=== PATIENT | male | born 1975 | race Hispanic/Latino ===

== ENCOUNTER 2023-07-24 08:12 | Day surgery (SDC) | payer BC ==
[2023-07-21 16:19] LABS: Absolute Eosinophils 0.2 K/uL (0-0.5); Absolute Lymphocytes (CBC) 2.7 K/uL (0.7-4.9); Absolute Monocytes 0.6 K/uL (0.1-1.3); Absolute Neutrophil 2.8 K/uL (1.8-8.0); Basophils % 0.4 % (0-1.3); Eosinophils % 3.1 % (0-4.4); Hematocrit 47.7 % (39.6-49.0); Hemoglobin 16.4 g/dL (13.6-17.9); Lymphocytes % 42.3 % (15.3-44.8); MCH 32.5 pg (27.0-35.0); MCHC 34.3 g/dL (32.0-36.0); MCV 94.7 fL (80-100); MPV 7.4 fL (7.6-11.3); Monocytes % 9.5 % (3.3-12.3); Neutrophils % 44.7 % (41.7-73.7); Platelets 295 thou/uL (152-406); RBC Red Blood Cell Count 5.04 M/uL (4.33-5.43); Red Cell Distribution Width 13.7 % (12.1-15.2)
[2023-07-21 16:45] LABS: Anion Gap 6.1 mEq/L (5.0-15.0); Potassium 4.1 mEq/L (3.5-5.1)
--- NOTE | 2023-07-21 22:14 | RAD REPORT ---
EXAM DESCRIPTION: RAD - Chest Pa And Lat (2 Views) - 07/21/2023 4:18 pm CLINICAL HISTORY: pre op lap umbilical hernia repair. Hypertension COMPARISON: Chest Pa And Lat (2 Views) dated 10/11/2019 TECHNIQUE: PA and lateral views of the chest were obtained. FINDINGS: The lungs are clear. Heart size is normal and central vasculature is within normal limits. No pleural effusion or pneumothorax seen. No acute bony finding noted. IMPRESSION: No acute cardiopulmonary process.
[2023-07-24] MEDS ORDERED: propofoL 200 MG/20 ML VIAL IV ONE (08:17)
[2023-07-24] MEDS ORDERED: KETOROLAC 30 MG/ML INJ ONE (08:17)
[2023-07-24] MEDS ORDERED: FENTANYL CITR 100 MCG/2 ML ONE (08:17)
[2023-07-24] MEDS ORDERED: ROCURONIUM 50 MG/5 ML VIAL IV ONE (08:17)
[2023-07-24] MEDS ORDERED: dexAMETHasone 10 MG/ML VIAL ONE (08:17)
[2023-07-24] MEDS ORDERED: ONDANSETRON 4 MG/2 ML VIAL ONE (08:17)
[2023-07-24] MEDS ORDERED: MIDAZOLAM HCL 2 MG/2 ML INJ ONE (08:17)
[2023-07-24] MEDS ORDERED: LIDOCAINE 2% MPF 5 ML VIAL ONE (08:18)
[2023-07-24] MEDS: Ringers Lactate 1,000 ML IV ONE (08:40)
[2023-07-24] MEDS: CEFAZOLIN SODIUM 1 GM/VIAL ONE (09:00)
[2023-07-24] MEDS ORDERED: SUGAMMADEX SODIUM 200 MG/2 ML VIAL IV ONE (10:09)
[2023-07-24] MEDS ORDERED: Mastisol Adhesive Liq ONE ×2 (10:11)
--- NOTE | 2023-07-24 10:18 | P.BOP ---
Preoperative diagnosis: tender incarcerated umbilical hernia Postoperative diagnosis: same Primary procedure: Laparoscopic repair of tender incarcerated umbilical hernia with mesh Skin Lifter Bacon: Bertha Angela (Denise) Estimated blood loss: <10cc Specimen: sac and content Findings: incarcerated omentum Anesthesia: General Complications: None Drain(s): Other (ventralex medium) Implants: ventralex medium Transferred to: Recovery Room Condition: Good
[2023-07-24] MEDS: CODEINE 30MG/APAP 300MG TAB ONE (11:42)
[2023-07-24 12:36] VITALS: BP 124/82; TEMP 97.3; O2SAT 97
--- NOTE | 2023-07-24 14:13 | EKG ---
Test Date: 2023-07-21 Test Time: 16:10:39 Mud Analysis Supervisor: LUCINDA MEASUREMENT RESULTS: Intervals: Rate: 62 PA: 164 QRSD: 106 QT: 386 QTc: 391 [place]: P: 62 PA: 164 QRS: 116 T: 57 INTERPRETIVE STATEMENTS: Normal sinus rhythm Right axis deviation Abnormal ECG No previous ECG available for comparison Electronically Signed On 07-24-23 14:06:50 CDT by Rehan Kenyon
== END 2023-07-24 12:10 | disposition home or self-care (01) ==
LOC: OR 08:12
PROVIDERS: ATTEND Surgery
PROC: 0WUF4JZ Supplement Abdominal Wall with Synthetic Substitute, Percutaneous Endoscopic Approach (ICD-10-PCS; principal; 2023-07-24 10:15)
DX: K42.0 Umbilical hernia with obstruction, without gangrene (principal)
CPT/HCPCS: 93005; 85025; 80048; 36415; 88302; 71046; 49594; J2704; J2001; J2250; J3010; J1100; J2405; J7120; J0690

== ENCOUNTER 2023-08-23 07:02 | Day surgery (SDC) | payer BC ==
[2023-08-21 11:19] LABS: Absolute Lymphocytes (CBC) 2.7 K/uL (0.7-4.9); Absolute Neutrophil 3.3 K/uL (1.8-8.0); Basophils % 0.5 % (0-1.3); Eosinophils % 3.2 % (0-4.4); Hematocrit 47.5 % (39.6-49.0); Hemoglobin 16.5 g/dL (13.6-17.9); MCHC 34.7 g/dL (32.0-36.0); MCV 92.3 fL (80-100); MPV 7.6 fL (7.6-11.3); Monocytes % 7.1 % (3.3-12.3); Neutrophils % 49.2 % (41.7-73.7); Nucleated Red Blood Cells % 0.1 % (0-0); Platelets 368 thou/uL (152-406); RBC Red Blood Cell Count 5.15 M/uL (4.33-5.43); Red Cell Distribution Width 13.3 % (12.1-15.2)
[2023-08-21 11:20] LABS: Absolute Eosinophils 0.2 K/uL (0-0.5); Absolute Monocytes 0.5 K/uL (0.1-1.3)
[2023-08-23] MEDS ORDERED: SUCCINYLCHOLINE 20 MG/ML (10 ML) IV ONE (07:12)
[2023-08-23] MEDS ORDERED: SUGAMMADEX SODIUM 200 MG/2 ML VIAL IV ONE (07:12)
[2023-08-23] MEDS: Ringers Lactate 1,000 ML IV ONE (07:25)
[2023-08-23] MEDS ORDERED: LIDOCAINE 1% MPF 5 ML VIAL ONE (07:42)
[2023-08-23] MEDS ORDERED: ONDANSETRON 4 MG/2 ML VIAL ONE (07:42)
[2023-08-23] MEDS ORDERED: KETOROLAC 30 MG/ML INJ ONE (07:42)
[2023-08-23] MEDS ORDERED: propofoL 200 MG/20 ML VIAL IV ONE (07:42)
[2023-08-23] MEDS ORDERED: FENTANYL CITR 100 MCG/2 ML ONE (07:42)
[2023-08-23] MEDS ORDERED: MIDAZOLAM HCL 2 MG/2 ML INJ ONE (07:43)
[2023-08-23] MEDS: CEFAZOLIN SODIUM 1 GM/VIAL ONE (08:20)
[2023-08-23] MEDS: BUPIVACAINE 0.5% PF 10 ML VIAL ONE (08:28)
[2023-08-23] MEDS ORDERED: GLYCOPYRROLATE 0.2 MG/ML SYR ONE (08:30)
--- NOTE | 2023-08-23 09:09 | P.BOP ---
Preoperative diagnosis: tender back subQ masses Postoperative diagnosis: same Primary procedure: Excisional biopsy of tender back subQ mass Secondary procedure: 1. R upper back 2x2cm, 2. Left back 2x2cm , 3. Midback 5x5cm Estimated blood loss: <10cc Specimen: mass x 3 Findings: see dicta Anesthesia: General Complications: None Transferred to: Recovery Room Condition: Good
[2023-08-23] MEDS: MEPERIDINE HCL 25 MG/ML SYR ONE (09:20)
[2023-08-23 09:58] VITALS: O2SAT 98
[2023-08-23] MEDS: CODEINE 30MG/APAP 300MG TAB ONE (10:26)
[2023-08-23 10:56] VITALS: BP 129/82; TEMP 97.2
--- NOTE | 2023-08-29 14:56 | OP ---
Surgeon: Donald Diaz MD Preoperative Diagnosis: Tender back subcutaneous mass. Postoperative Diagnosis: Tender back subcutaneous mass. Procedures: Excisional biopsy of tender back subcutaneous mass. 1.Right upper back 2 x 2 cm. 2.Left back 2 x 2 cm. 3.Mid back 5 x 5 cm. Estimated Blood Loss: Less than 10 cc. Specimen: Mass x3. Finding: Subcutaneous masses. Anesthesia: General plus local. Indications: This is the case of a 48-year-old patient who came to us with 3 tender masses. The mireille efits, alternatives, and risks of excision fully explained, which include, but not limited to, infect ion, bleeding, damage to adjacent structures, anesthesia complication, recurrence, AK, and even . He also understands this may not relieve any symptoms. He might need more than one surgical inter vention. He understood, signed a consent. Procedure In Detail: The areas of concern were marked by me and the patient in the holding room. [place] elisabeth brought to the operating room, placed in supine position. Anesthesia was done without complica tion. The patient was placed in lateral decubitus position with proper protection. Back area was pr epped and draped in sterile fashion. We marked three areas, three of them using the same technique, different incisions, we did the right upper back 2 x 2 cm, left back 2 x 2 cm, and mid back 5 x 5 cm, all using the same technique, which consisted of wedge incision. The skin incision was carried down to subcutaneous tissue, removed the mass with the help of blunt dissection. These masses goes all t he way down to fascia of the muscle, but none of them penetrate the muscle. The mass was excised. A mel was irrigated. Irrigation was done. Then, we proceeded to close this with a combination of digital forensic examiner krissy. Each mass was done individually and closed individually using the same technique. Patient harry rated each procedure well. Sponge counts and instrument counts were correct. Patient was sent to [facility] in stable condition. AJIT/MG Voice ID: [id number] Report ID: [id number]
--- NOTE | 2023-08-29 14:56 | DS ---
Date of Discharge: 08/23/2023 Diagnosis: Tender back subcutaneous mass. Procedure: Excisional biopsy of tender back subcutaneous masses on the right upper back and left michelle k and mid back. Condition: Stable. Disposition: Home. Activity: As tolerated. No heavy lifting. Plan: Follow up in my office in 1 week. Call for appointment at [phone]. Keep area dry for 48 pat[address] rs. Follow up in my office in 1 week. AJIT/MG Voice ID: [id number] Report ID: [id number]
== END 2023-08-23 10:47 | disposition home or self-care (01) ==
LOC: OR 07:02
PROVIDERS: ATTEND Surgery
PROC: 0JB70ZZ Excision of Back Subcutaneous Tissue and Fascia, Open Approach (ICD-10-PCS; principal; 2023-08-23 08:15)
DX: L72.0 Epidermal cyst (principal)
CPT/HCPCS: 36415; 80048; 85025; 88304; 88305; J0690; J2001; J2175; J2250; J2405; J2704; J3010; J7120